=== PATIENT | female | born 1980 | race Caucasian/White ===

== ENCOUNTER → 2017-04-05 | Outpatient (CLI) | payer OTHER ==
[~2017-04-05] MED LIST: AUGMENTIN 875-1 EACH PO; FLONASE 50 MCG16 GM; HYDROCODONE-APA1 TA1 PO; NORGESTIMATE AN1 TAB PO
--- NOTE | 2017-04-05 14:51 | RADIOLOGY REPORT PS360 ---
KUB (SINGLE VIEW) HISTORY: DYSURIA, LT FLANK PAIN ORDERING PHYSICIAN: Mariposa ALMANZAR PATIENT AGE: 37 years COMPARISON: None FINDINGS: The bowel gas pattern is unremarkable. No obvious obstruction.. No abnormal calcifications are evident. No obvious renal or ureteral calculi.. No acute bony anomalies evident. IMPRESSION: Negative KUB, no acute finding
== END ==
LOC: RAD 10:06
DX: R30.0 Dysuria (principal); R10.9 Unspecified abdominal pain

== ENCOUNTER → 2017-04-10 | Outpatient (CLI) | payer OTHER ==
--- NOTE | 2017-04-10 15:05 | RADIOLOGY REPORT PS360 ---
US [id number] HISTORY: LEFT FLANK PAIN ORDERING PHYSICIAN: Taina Martinez APRN PATIENT AGE: 37 years COMPARISON: None FINDINGS: RIGHT KIDNEY:Unremarkable. Normal size and echogenicity. No hydronephrosis The right kidney measures 9 x 4 x 7 cm LEFT KIDNEY:There is mild dilatation of the upper pole the left kidney. Left kidney measures 12 x 4 x 4 cm. OTHER FINDINGS: No other pertinent findings IMPRESSION: Mild dilatation of the upper pole of the left kidney otherwise negative bilateral renal ultrasound
== END ==
LOC: RAD 10:56
DX: R10.9 Unspecified abdominal pain (principal)